=== PATIENT | female | born 1960 | race Two or more races ===

== ENCOUNTER 2020-06-28 11:06 | Outpatient (REF) | payer BC, SELFPAY ==
[2020-06-28 11:58] LABS: MANUAL DIFF FLAG NO
[2020-06-28 12:01] LABS: Basophils Percent Auto 0.6 % (0-2); Eosinophils Absolute Auto 0.1 X10*3/uL (0.0-0.4); Eosinophils Percent Auto 1.9 % (0-4); Hematocrit 39.1 % (37-47); Hemoglobin 12.8 g/dl (12.0-16.0); Imm Gran Abs Auto 0.02 X10*3/uL (0.00-0.03); Imm Gran Pct Auto 0.4 % (0.0-0.4); Lymphocytes Absolute Auto 1.8 X10*3/uL (1.2-4.9); Lymphocytes Percent Auto 34.7 % (20-40); Mean Corpuscular HGB Conc 32.7 g/dl (31.0-35.0); Mean Corpuscular Volume 97.8 fL (80-98); Mean Platelet Volume 9.2 fL (9.4-12.3); Monocytes Absolute Auto 0.4 X10*3/uL (0.1-1.2); Monocytes Percent Auto 7.1 % (2-11); Neutrophils Absolute Auto 2.9 X10*3/uL (2.0-8.3); Neutrophils Percent Auto 55.3 % (45-73); Platelet Count 258 X10*3/uL (160-400); Red Cell Distribution Width 11.8 % (11.0-16.0); White Blood Count 5.2 X10*3/uL (4.8-10.8)
[2020-06-28 12:05] LABS: Glucose Urine UA NEG (NEG); Leukocyte Esterase Urine NEG (NEG); Nitrite Urine NEG (NEG); Specific Gravity - Urine <= 1.005 (1.005-1.025); Urine Blood NEG (NEG); Urine Ketones NEG (NEG); Urine Protein NEG (NEG-TRACE)
[2020-06-28 12:06] LABS: Appearance Urine CLEAR; Color Urine STRAW
[2020-06-28 12:36] LABS: Alanine Aminotransferase 13 U/L (0-31); Albumin Level 4.6 g/dL (3.5-5.0); Alkaline Phosphatase 57 U/L (39-117); Anion Gap 12 (12-20); Aspartate Amino Transferase 18 U/L (5-31); Bilirubin Total 0.4 mg/dL (0.0-1.0); Blood Urea Nitrogen 11 mg/dL (9-16); Calcium 9.1 mg/dL (8.4-10.2); Carbon Dioxide 29 mmol/L (22-29); Chloride 102 mmol/L (96-108); Cholesterol 277 mg/dL; Estimated Glomerular Filt Rate > 60; Glucose Fasting 96 mg/dL (60-99); HDL Cholesterol 54 mg/dL; LDL Cholesterol Calculated 196 mg/dl; Potassium 4.1 mmol/L (3.3-5.1); Sodium 139 mmol/L (135-145); Total Protein 7.2 g/dL (6.5-8.0); Triglycerides 138 mg/dL
[2020-06-28 12:47] LABS: TSH reflex Free T4 1.19 uIU/mL (0.32-4.0)
== END 2020-06-28 11:07 | disposition home or self-care (01) ==
LOC: HO.LAB 11:06
PROVIDERS: PCP Internal Medicine; Visit Provider Internal Medicine
DX: Z00.00 Encounter for general adult medical examination without abnormal findings (principal); Z86.39 Personal history of other endocrine, nutritional and metabolic disease
CPT/HCPCS: 36415; 80053; 80061; 81003; 84443; 85025

== ENCOUNTER 2021-10-07 09:46 | Outpatient (REF) | payer BC, SELFPAY ==
[2021-10-07 10:12] LABS: MANUAL DIFF FLAG NO
[2021-10-07 10:27] LABS: Basophils Percent Auto 0.6 % (0-2); Eosinophils Absolute Auto 0.3 X10*3/uL (0.0-0.4); Eosinophils Percent Auto 5.4 % (0-4); Hematocrit 35.7 % (37.0-47.0); Hemoglobin 11.8 g/dl (12.0-16.0); Imm Gran Abs Auto 0.01 X10*3/uL (0.00-0.03); Imm Gran Pct Auto 0.2 % (0.0-0.4); Lymphocytes Absolute Auto 1.9 X10*3/uL (1.2-4.9); Mean Corpuscular HGB Conc 33.1 g/dl (31.0-35.0); Mean Corpuscular Hemoglobin 32.2 pg (27.0-33.0); Mean Corpuscular Volume 97.5 fL (80.0-98.0); Mean Platelet Volume 9.6 fL (9.4-12.3); Monocytes Absolute Auto 0.5 X10*3/uL (0.1-1.2); Monocytes Percent Auto 10.7 % (2-11); Neutrophils Percent Auto 42.1 % (45-73); Platelet Count 225 X10*3/uL (160-400); Red Blood Count 3.66 X10*6/uL (4.20-5.50); Red Cell Distribution Width 11.9 % (11.0-16.0); White Blood Count 4.7 X10*3/uL (4.8-10.8)
[2021-10-07 10:54] LABS: Alanine Aminotransferase 27 U/L (0-31); Albumin Level 4.2 g/dL (3.5-5.0); Alkaline Phosphatase 66 U/L (39-117); Anion Gap 11 (12-20); Aspartate Amino Transferase 35 U/L (5-31); Bilirubin Total 0.7 mg/dL (0.0-1.0); Blood Urea Nitrogen 19 mg/dL (9-16); Carbon Dioxide 29 mmol/L (22-29); Chloride 101 mmol/L (96-108); Cholesterol 207 mg/dL; Estimated Glomerular Filt Rate > 60; Glucose Fasting 88 mg/dL (60-99); HDL Cholesterol 54 mg/dL; LDL Cholesterol Calculated 145 mg/dl; Potassium 3.9 mmol/L (3.3-5.1); Sodium 137 mmol/L (135-145); Total Protein 6.8 g/dL (6.5-8.0); Triglycerides 41 mg/dL
[2021-10-07 11:18] LABS: TSH reflex Free T4 1.31 uIU/mL (0.32-4.0); Vitamin D 25-OH Total 21.3 ng/mL (>30)
[2021-10-07 12:16] LABS: Appearance Urine CLEAR; Color Urine STRAW; Glucose Urine UA NEG (NEG); Leukocyte Esterase Urine NEG (NEG); Nitrite Urine NEG (NEG); PH 7.5 (5.0-8.0); Specific Gravity - Urine <= 1.005 (1.005-1.025); Urine Blood NEG (NEG); Urine Ketones NEG (NEG); Urine Protein NEG (NEG-TRACE)
== END 2021-10-07 09:47 | disposition home or self-care (01) ==
LOC: HO.LAB 09:46
PROVIDERS: PCP Internal Medicine; Visit Provider Internal Medicine
DX: Z00.00 Encounter for general adult medical examination without abnormal findings (principal); E55.9 Vitamin D deficiency, unspecified
CPT/HCPCS: 36415; 80053; 80061; 81003; 82306; 84443; 85025

== ENCOUNTER 2021-10-29 15:46 | Outpatient (REF) | payer BC, SELFPAY ==
--- NOTE | ~2021-10-29 | MM_ITS ---
EXAMINATION: MM SCREENING DIGITAL BREAST TOMOSYNTHESIS, BILATERAL CLINICAL INFORMATION: Screening. Asymptomatic. The lifetime risk of breast cancer based on the Tyrer-Cuzick Model is 7%. COMPARISON: None. Prior outside mammography have been requested. TECHNIQUE: Digital breast tomosynthesis is performed in both the craniocaudal and mediolateral oblique views along with computer-aided detection (CAD). Synthesized 2D images are generated from the tomosynthesis. FINDINGS: The breasts are heterogeneously dense, which may obscure small masses (ACR BI-RADS breast composition Category c). There is no significant mass and no architectural abnormality or abnormal calcifications. The axilla are unremarkable. The skin contours are smooth. Radiology department will attempt to retrieve prior outside mammography to allow for comparison in an addendum report. MM/MM tomosynthesis screening BI IMPRESSION: No mammographic evidence of malignancy. ASSESSMENT: BI-RADS 2: Benign RECOMMENDATION: Routine annual mammography screening. This patient's information was entered into a reminder system with a target due date for their next mammogram.
== END 2021-10-29 15:47 | disposition home or self-care (01) ==
LOC: HO.MAMMO 15:46
PROVIDERS: PCP Internal Medicine; Visit Provider Internal Medicine
DX: Z12.31 Encounter for screening mammogram for malignant neoplasm of breast (principal)
CPT/HCPCS: 77063; 77067

== ENCOUNTER 2021-12-04 07:52 | Outpatient (REF) | payer BC, SELFPAY ==
--- NOTE | 2021-12-04 07:54 | EMG_ITS ---
Bilateral median and ulnar motor and sensory studies were performed, bilateral radial sensory studies were performed, and paraspinal muscles were tested. IMPRESSION: 1. Moderate left and [id number] right median neuropathy across carpal tunnel. 2. Mild left ulnar neuropathy across cubital tunnel. MD LINDEN Power/DAMION / [id number]
== END 2021-12-04 07:53 | disposition home or self-care (01) ==
LOC: HO.NEURO 07:52
PROVIDERS: PCP Internal Medicine; Visit Provider Internal Medicine
DX: R20.2 Paresthesia of skin (principal)
CPT/HCPCS: 95886; 95911

== ENCOUNTER 2022-03-26 09:00 | Outpatient (RCR) | payer BC, SELFPAY ==
--- NOTE | 2022-02-18 13:13 | MHC.OT.EP ---
[address] [phone] Occupational Therapy Plan of Care Date of Evaluation: 02/18/22 Diagnosis: Bilateral carpal tunnel syndrome Assessment: Pt. is a 61 y/o female referred to OT w/ bilateral carpal tunnel syndrome. EMG results shower moderate L medial neuropathy, mild/moderate right medial neuropathy, as well as mild L ulnar neuropathy. Pt. c/o constant numbness and tingling in L hand digits 1-3 w/ occasional numbness in 4th digit. She is wearing bilateral wrist support splints during the night. Pt. wishes to avoid surgical intervention if possible and is very receptive to recommendations. Pain is rated 1/10, primary complaint is numbness and loss of c iron worker strength. Pt. also has pain and triggering of right 4th digit. A 11.4% limitation is noted per the Quick DASH assessment. Pt. would benefit from skilled OT services to address noted barriers and assist in return to PLOF. Frequency and Duration: The patient will be seen 2x/wk for 6 weeks Short Term Goals: IND with orthosis wear Pain free with BADL's/IADL's Improve c iron worker strength by 5# bilaterally Decrease numbness by 25% on L hand Longterm Goals: IND with progression of HEP Decrease L hand numbness by 50% Improve bilateral c iron worker strength by 10# each Quick DASH <5% Treatment Plan: Therapeutic Exercise Therapeutic Activity Home Exercise Program Splinting Patient Education Desensitization/Sensory Re-ed Ultrasound Fluidotherapy MHP Joint Mobilization Soft Tissue Mobilization Kinesiotaping Electronically Signed By: Maria Del Rosario Ahuja Please Sign and return to therapist. Thank you once again for your referral.
--- NOTE | 2022-03-26 09:48 | MHC.OT.DC ---
[address] [phone] F: [phone] Occupational Therapy Discharge Note Provider: Halie Sepulveda Diagnosis: Bilateral carpal tunnel syndrome Date of Surgery: Date of Evaluation: 02/18/22 Date of Discharge: Treatments to Date: 8 Cancellations to Date: No Shows to Date: Discharge Status: Achieved Goals Improved Function Independent with HEP Discharge Summary: Jazzy has made great gains in OT and met all LTG's set on admission. She is able to complete 3-4 hours of heavy work with minimal increase in symptoms. Bilateral mandarin speaking nanny strength increased by 10#. Pt. reports a 75% reduction in numbness of L hand and denies numbness of right hand. At this time, pt. is IND with splint wear, home exercise program and is in agreement with discharge. Electronically Signed By: Maria Del Rosario Ahuja Reviewed/agree with student documentation: Therapist: Please Sign and return to therapist, thank you for your referral.
== END 2022-03-26 09:48 | disposition home or self-care (01) ==
LOC: HO.OT 09:00
PROVIDERS: PCP Internal Medicine; Visit Provider Nurse Practitioner Family
DX: G56.03 Carpal tunnel syndrome, bilateral upper limbs (principal)
CPT/HCPCS: 97035; 97110; 97165; 97530

== ENCOUNTER 2022-10-09 09:30 | Outpatient (REF) | payer BC, SELFPAY ==
[2022-10-09 09:43] LABS: MANUAL DIFF FLAG NO
[2022-10-09 11:04] LABS: Basophils Percent Auto 0.7 % (0-2); Eosinophils Absolute Auto 0.1 X10*3/uL (0.0-0.4); Eosinophils Percent Auto 2.2 % (0-4); Hematocrit 38.4 % (37.0-47.0); Hemoglobin 12.6 g/dl (12.0-16.0); Imm Gran Abs Auto 0.01 X10*3/uL (0.00-0.03); Imm Gran Pct Auto 0.2 % (0.0-0.4); Lymphocytes Absolute Auto 1.3 X10*3/uL (1.2-4.9); Lymphocytes Percent Auto 32.5 % (20-40); Mean Corpuscular HGB Conc 32.8 g/dl (31.0-35.0); Mean Corpuscular Hemoglobin 32.2 pg (27.0-33.0); Mean Corpuscular Volume 98.2 fL (80.0-98.0); Monocytes Absolute Auto 0.3 X10*3/uL (0.1-1.2); Monocytes Percent Auto 7.8 % (2-11); Neutrophils Absolute Auto 2.3 x10*3/uL (2.0-8.3); Neutrophils Percent Auto 56.6 % (45-73); Platelet Count 238 X10*3/uL (160-400); Red Blood Count 3.91 X10*6/uL (4.20-5.50); White Blood Count 4.1 X10*3/uL (4.8-10.8)
[2022-10-09 11:04] LABS: Appearance Urine Clear; Color Urine Yellow; Glucose Urine UA Negative (Negative); Leukocyte Esterase Urine Trace (Negative); Nitrite Urine Negative (Negative); Specific Gravity - Urine <= 1.005 (1.005-1.025); UMIC TRIGGER UACC YES; Urine Blood Negative (Negative); Urine Ketones Negative (Negative); Urine Protein Negative (Neg-Trace)
[2022-10-09 11:07] LABS: Bacteria Urine None Seen (None Seen); Hyaline Casts Urine 0-2 /LPF (0-2); RBC Urine 0-2 /HPF (0-2); Squamous Epithelial Cell Urine 0-2 /HPF (0-2); WBC Urine 0-5 /HPF (0-5)
[2022-10-09 12:22] LABS: Alanine Aminotransferase 21 U/L (0-31); Albumin Level 4.3 g/dL (3.5-5.0); Alkaline Phosphatase 62 U/L (39-117); Anion Gap 12 (12-20); Aspartate Amino Transferase 29 U/L (5-31); Bilirubin Total 0.6 mg/dL (0.0-1.0); Blood Urea Nitrogen 12 mg/dL (9-16); Calcium 9.6 mg/dL (8.4-10.2); Carbon Dioxide 29 mmol/L (22-29); Chloride 103 mmol/L (96-108); Cholesterol 219 mg/dL; Estimated Glomerular Filt Rate > 60; Glucose Fasting 84 mg/dL (60-99); HDL Cholesterol 51 mg/dL; LDL Cholesterol Calculated 148 mg/dl; Potassium 4.4 mmol/L (3.3-5.1); Sodium 140 mmol/L (135-145); TSH reflex Free T4 1.68 uIU/mL (0.32-4.0); Total Protein 7.3 g/dL (6.5-8.0); Triglycerides 103 mg/dL; Vitamin D 25-OH Total 74.4 ng/mL (>30)
[2022-10-09 12:49] LABS: Folate 16.4 ng/mL (> or = 4.0)
[2022-10-09 13:54] LABS: Vitamin B12 > 2000 pg/mL (200-900)
== END 2022-10-09 09:31 | disposition home or self-care (01) ==
LOC: HO.LAB 09:30
PROVIDERS: Internal Medicine; PCP Internal Medicine; Visit Provider Internal Medicine
DX: Z00.00 Encounter for general adult medical examination without abnormal findings (principal); I10 Essential (primary) hypertension; E78.00 Pure hypercholesterolemia, unspecified; E53.8 Deficiency of other specified B group vitamins; E55.9 Vitamin D deficiency, unspecified
CPT/HCPCS: 36415; 80053; 80061; 81001; 81003; 82306; 82607; 82746; 84443; 85025